=== PATIENT | male | born 1995 | race Caucasian/White ===

== ENCOUNTER 2020-09-26 20:30 | Emergency (ER) | payer BC ==
[2020-09-26] MEDS ORDERED: Lactated Ringers 1,000 ML IV ONE (20:39)
[2020-09-26] MEDS ORDERED: fentaNYL 100 MCG/2 ML SDV IVPUSH ONE (20:39)
--- NOTE | 2020-09-26 20:48 | EDM.PDOC ---
ED HPI GENERAL MEDICAL PROBLEM - General Stated Complaint: Shoulder dislocation Time Seen by Provider: 09/26/20 20:30 Source of Information: Reports: Patient History Limitations: Reports: No Limitations - History of Present Illness INITIAL COMMENTS - FREE TEXT/NARRATIVE: Patient [place] emergency department today [place] with concerns of a dislocated left shoulder. This patient is in town for [place] when he was trying to get off a horse following riding a bronco. As he was getting off the horse he was going to get down and he struck his left elbow on the backside of the horse and subsequently felt a large pop and crack and felt his shoulder dislocate. He has dislocated his left shoulder in the past about a year or so ago. They did attempt to reduce it on the scene but were unable to do so. An IV was established by the ambulance and he was given 100 mcg of fentanyl and he was brought to the emergency department. On arrival the patient is ambulatory and complaining of severe pain to his left shoulder. He denies any paresthesias to his left arm. He denies any difficulty breathing cough or congestion. No fever no chills. No other falls trauma or injury. He still is quite uncomfortable in pain with muscle spasms to his left shoulder. No Covid exposure no Covid symptoms. Left shoulder Pain Score (Numeric/FACES): 10 - Related Data Allergies Allergy/AdvReac Type Severity Reaction Status Date / Time No Known Allergies Allergy Verified 09/26/20 23:42 Home Meds: Home Meds . [No Known Home Meds] 09/26/20 [History] Review of Systems - Review of Systems Review Of Systems: Comprehensive ROS is negative, except as noted in HPI. ED EXAM, GENERAL - Physical Exam Exam: See Below Exam Limited By: No Limitations General Appearance: Alert, WD/WN, Moderate Distress (in pain) Ears: Normal External Exam Nose: Normal Inspection Throat/Mouth: Normal Inspection Head: Atraumatic, Normocephalic Neck: Normal Inspection, Supple Respiratory/Chest: No Respiratory Distress, Lungs Clear, Normal Breath Sounds, No Accessory Muscle Use, Chest Non-Tender Cardiovascular: Normal Peripheral Pulses, Regular Rate, Rhythm, Tachycardia Peripheral Pulses: 2+: Radial (L), Radial (R) GI/Abdominal: Normal Bowel Sounds, Soft (Male) Exam: Deferred Rectal (Males) Exam: Deferred Back Exam: Normal Inspection Extremities: No: Normal Inspection (Loss of fullness to the left shoulder and concerning for dislocation. No bony deformity. Puleses intact. and sensation intact. Scapula is unremarkable. ) Neurological: Alert, Oriented, Normal Cognition, No Motor/Sensory Deficits Psychiatric: Anxious Skin Exam: Intact, Cool, Diaphoretic, Pallor Course - Vital Signs Last Recorded V/S: Last Vital Signs Temp 95.7 F L 09/26/20 20:30 Pulse 93 09/26/20 20:30 Resp 16 09/26/20 20:30 BP 141/65 H 09/26/20 20:30 Pulse Ox 98 09/26/20 20:30 - Orders/Labs/Meds Orders: Active Orders 24 hr Category Date Time Status Shoulder 1V Lt [CR] Stat Exams 09/26/20 20:38 Taken Shoulder 1V Lt [CR] Stat Exams 09/26/20 21:35 Taken DME for Discharge [COMM] Stat Oth 09/26/20 21:40 Ordered Meds: Medications Discontinued Medications Generic Name Dose Route Start Last Admin Trade Name Carito PRN Reason Stop Dose Admin Hydrocodone Bitart/Acetaminophen 1 packet 09/26/20 21:47 09/26/20 22:00 Take Home: Acetaminophen/Hydrocodone 325-5 Mg, 5 Tab Pack PO 09/26/20 21:48 1 packet ONETIME ONE Administration Etomidate 20 mg 09/26/20 21:25 09/26/20 21:29 Etomidate 2 Mg/Ml 10 Ml Sdv IVPUSH 09/26/20 21:26 20 mg ONETIME ONE Administration Fentanyl 100 mcg 09/26/20 20:39 09/26/20 20:51 Fentanyl 100 Mcg/2 Ml Sdv IVPUSH 09/26/20 20:40 100 mcg ONETIME ONE Administration Lactated Ringer's 1,000 mls @ 999 mls/hr 09/26/20 20:39 09/26/20 20:45 Ringers, Lactated IV 09/26/20 21:39 999 mls/hr ONETIME ONE Administration Ketorolac Tromethamine 30 mg 09/26/20 21:45 09/26/20 22:01 Ketorolac 30 Mg/Ml Sdv IVPUSH 09/26/20 21:46 30 mg ONETIME ONE Administration Midazolam HCl 2 mg 09/26/20 20:49 09/26/20 20:57 Midazolam 1 Mg/Ml 2 Ml Sdv IVPUSH 09/26/20 20:50 2 mg ONETIME ONE Administration Midazolam HCl 1 mg 09/26/20 21:00 09/26/20 21:01 Midazolam 1 Mg/Ml 2 Ml Sdv IVPUSH 09/26/20 21:01 1 mg ONETIME ONE Administration - Radiology Interpretation Free Text/Narrative:: Initial xray per radiology and my extemporaneous review as well with an anterior left shoulder dislocation without a fracture. Post reduction per radiology and my extemporaneous review shows a successful reduction of the shoulder without fracture. - Re-Assessments/Exams Free Text/Narrative Re-Assessment/Exam: The patient initially was given 100 mcg of fentanyl IV for pain relief. He was also given Versed intravenously for anxiolysis. I attempted to place the arm into abduction and a 90 degree angle and then rotation of the forearm cephalad the to reduce the anterior shoulder dislocation without success primarily because the patient was uncomfortable in pain and had quite a bit of muscle spasms. Then discussed moderate sedation with the patient. Risk and benefits were discussed with the patient. His questions were answered verbal and written consent was obtained. The patient was connected to the cardiac exercise physiologist pulse oximetry and end-tidal CO2 monitoring as well as blood pressure monitoring. Emergency airway equipment was readily available. ASA class I. Mallampati 1. A timeout was completed verification of the procedure site of the procedure and preparation of equipment was completed. At 2128 the procedure was initiated starting with etomidate 20 mg IV push administered by myself. Patient had nasal cannula [address] Good sedation was verified. I initially attempted with abduction and cephalad rotation and was unable to reduce the shoulder once again. Then with the usage of a sheet traction and counter traction by myself and the nurse we were easily able to reduce the shoulder. The patient tolerated the procedure very well. and had good PROM of the left shoulder. Postreduction x-ray shows reduction of the shoulder successfully. The patient awoke from anesthesia approximately 9 minutes following the procedure. He maintained his airway per himself. His end-tidal CO2 was appropriate around 30-33. His oxygen saturation stayed above 99% on 2 L nasal cannula. His vital signs were monitored closely every 5 minutes by nursing please see nursing notes. Direct monitoring by myself as well as nursing staff was completed throughout the entire moderate sedation procedure. My direct monitoring was completed at 2200 hrs. Nursing continued monitoring the patient. The patient awoke from anesthesia very quickly and easily. He had no side effects. He was alert oriented and appropriate. His modified phani score was 10 pre and post procedure. His arm was placed in a shoulder immobilizer. He was also given 30 mg of Toradol for continued pain relief. He was alert appropriate he was able to drink fluids and feels much better. His skin is pink warm and dry. A friend of his did arrive for discharge. Discharge directions as below are explained to the patient he was comfortable with this plan his questions were answered. Departure - Departure Time of Disposition: 21:15 Disposition: Home, Self-Care 01 Clinical Impression: Shoulder dislocation Qualifiers: Encounter type: initial encounter Laterality: left Qualified Code(s): S43.005A - Unspecified dislocation of left shoulder joint, initial encounter - Discharge Information Instructions: Shoulder Dislocation, [id number] Referrals: PCP,Not In Area [Primary Care Provider] - Forms: ED Department Discharge Additional Instructions: Tylenol and or Ibuprofen as needed for pain. Ice to the left shoulder 4-6 times a day for the next 3 days. Left arm in the Arm sling at all times ESPECIALLY when sleeping. Make take off to shower but keep arm close to the body. If pain not controlled with above [place] 1 tablet every 4hrs with food as needed for pain. Starter pack sent home from the ED. Caution sedation. Return to the ED if new or worsening symptoms. Follow up with PCP or ortho in 7-10 days for recheck and start physical therapy. Sepsis Event Note (ED) - Focused Exam Vital Signs: Vital Signs Temp Pulse Resp BP Pulse Ox 09/26/20 20:30 95.7 F L 93 16 141/65 H 98 - My Orders Last 24 Hours: My Active Orders 09/26/20 20:38 Shoulder 1V Lt [CR] Stat 09/26/20 21:35 Shoulder 1V Lt [CR] Stat 09/26/20 21:40 DME for Discharge [COMM] Stat - Assessment/Plan Last 24 Hours: My Active Orders 09/26/20 20:38 Shoulder 1V Lt [CR] Stat 09/26/20 21:35 Shoulder 1V Lt [CR] Stat 09/26/20 21:40 DME for Discharge [COMM] Stat Assessment:: Left shoulder dislocation. Encounter for moderate sedation for reduction of left shoulder. Successful reduction of the left shoulder.
[2020-09-26] MEDS ORDERED: Midazolam 1 MG/ML 2 ML SDV IVPUSH ONE ×2 (20:49→21:00)
[2020-09-26] MEDS ORDERED: Etomidate 2 MG/ML 10 ML SDV IVPUSH ONE (21:25)
[2020-09-26] MEDS ORDERED: Ketorolac 30 MG/ML SDV IVPUSH ONE (21:45)
[2020-09-26] MEDS ORDERED: Take Home: Acetaminophen/HYDROcodone 325-5 MG, 5 Tab Pack PO ONE (21:47)
--- NOTE | 2020-09-27 07:55 | CR ---
[id number] RAD/RAD Shoulder Left 1V; [id number] RAD/RAD Shoulder Left 1V Exam: RAD Shoulder Left 1V, RAD Shoulder Left 1V Indication:Shoulder pain and possible dislocation. Comparison: No prior imaging for comparison. Discussion/Impression: Initial single image demonstrates anterior dislocation of the humerus in relation to the glenoid. Postreduction examination demonstrates successful reduction. Michael Carrion MD 09/27/20 0754 Thank you for allowing us to participate in the care of your patient.
== END 2020-09-26 22:17 | disposition home or self-care (01) ==
LOC: VM.ED 20:30
DX: S43.015A Anterior dislocation of left humerus, initial encounter (principal); W55.12XA Struck by horse, initial encounter; Y93.39 Activity, other involving climbing, rappelling and jumping off
CPT/HCPCS: 23650; 73020-LT; 96374; 99152; 99284; 99284-25; A9270-GY; J1885; J2250; J3010; J3490; J7120